=== PATIENT | male | born 1960 | race Caucasian/White ===

== ENCOUNTER 2017-08-08 17:48 | Inpatient (IN) | payer MEDICARE, MEDICAID ==
[~2017-08-08] VITALS: Ht 175.3 cm; Wt 74.7 kg
[~2017-08-08 17:48] MED LIST: ADV250 IH; ALBU8HFA IH; CEPH500C2 PO; CLON-570 PO; PARO20TA24 PO; QUET300T2 PO; SIMV-261 PO; SULF-168 PO
[2017-08-08] MEDS ORDERED: QUEtiapine FUMARATE 100 MG TABLET PO PRN (18:30)
[2017-08-08] MEDS ORDERED: ZOLPIDEM TARTRATE 10 MG TABLET PO PRN (18:30)
[2017-08-08 18:42] VITALS: BP 126/96
[2017-08-08] MEDS ORDERED: INFLUENZA VIRUS VACCINE QVS 2017-18 (3YR+)/PF 60 MCG/0.5 ML SYRINGE IM ONE (19:00)
[2017-08-08] MEDS ORDERED: PNEUMOCOCCAL VACCINE POLYVALENT 0.5 ML VIAL [PPSV23] IM ONE (19:00)
[2017-08-08] MEDS ORDERED: PERMETHRIN 5% 60 GM CREAM TP ONE (19:30)
[2017-08-08] MEDS: QUEtiapine FUMARATE 200 MG TABLET PO SCH (20:48)
[2017-08-08] MEDS ORDERED: DiphenhydrAMINE HCL 50 MG/ML VIAL ONE (21:58)
[2017-08-08] MEDS ORDERED: HALOPERIDOL LACTATE 5 MG/ML VIAL ONE (21:58)
[2017-08-08] MEDS ORDERED: LORazepam 2 MG/ML VIAL ONE (21:58)
[2017-08-08 22:00] VITALS: BP 130/90
[2017-08-08] MEDS ORDERED: HALOPERIDOL LACTATE 5 MG/ML VIAL IM ONE (22:00)
[2017-08-08] MEDS ORDERED: DiphenhydrAMINE HCL 50 MG/ML VIAL IM ONE (22:00)
[2017-08-08] MEDS ORDERED: LORazepam 2 MG/ML VIAL IM ONE (22:00)
[2017-08-09 06:08] VITALS: BP 140/86
[2017-08-09] MEDS: NICOTINE 21 MG/24 HOUR PATCH TD SCH (09:36)
[2017-08-09] MEDS: PARoxetine HCL 20 MG TABLET PO SCH (09:36)
[2017-08-09] MEDS ORDERED: TUBERCULIN, PURIFIED PROTEIN DERIVATIVE 5 TU/0.1 ML SYG ID ONE (11:15)
[2017-08-09] MEDS ORDERED: LOPERAMIDE HCL 2 MG CAPSULE PO PRN (11:15)
[2017-08-09] MEDS ORDERED: ACETAMINOPHEN 325 MG TABLET PO PRN (11:15)
[2017-08-09] MEDS ORDERED: GuaiFENesin/D-METHORPHAN [SUGAR-FREE] 200-20MG/10 ML SYRUP UDCUP PO PRN (11:15)
[2017-08-09] MEDS ORDERED: PROMETHAZINE HCL 25 MG TABLET PO PRN (11:15)
[2017-08-09] MEDS ORDERED: HydrOXYzine PAMOATE 50 MG CAPSULE PO PRN (11:15)
[2017-08-09] MEDS ORDERED: MAG HYDROX/AL HYDROX/SIMETH ES 30 ML SUSPENSION UDCUP PO PRN (11:15)
[2017-08-09] MEDS ORDERED: MAGNESIUM HYDROXIDE SUSPENSION 30 ML UDCUP PO PRN (11:15)
[2017-08-09 16:22] VITALS: BP 122/76
[2017-08-09] MEDS: THIAMINE HCL 100 MG TABLET PO SCH (17:54)
[2017-08-09] MEDS: QUEtiapine FUMARATE 200 MG TABLET PO SCH (20:54)
[2017-08-09] MEDS: GABAPENTIN 100 MG CAPSULE PO SCH (21:03)
[2017-08-10 00:21] VITALS: BP 128/67
[2017-08-10 04:31] VITALS: BP 147/93
[2017-08-10] MEDS: LORazepam 2 MG TABLET PO PRN (04:45)
[2017-08-10 08:16] LABS: BASOPHILS % (AUTO) 0.7 % (0.0-2.0); EOSINOPHILS % (AUTO) 3.4 % (1.0-6.0); HEMATOCRIT 43.8 % (41-53); HEMOGLOBIN 15.3 g/dL (13.5-17.5); LYMPHOCYTES # (AUTO) 1.7 K/uL (1.0-4.8); LYMPHOCYTES % (AUTO) 23.5 % (22.0-44.0); MEAN CORPUSCULAR HEMOGLOBIN 34.1 pg (26.0-34.0); MEAN CORPUSCULAR HGB CONC 34.9 G/dL (31.0-37.0); MEAN CORPUSCULAR VOLUME 98 fL (80-100); MONOCYTES # (AUTO) 0.7 K/uL (0.1-1.0); MONOCYTES % (AUTO) 9.1 % (2.0-9.0); NEUTROPHILS # (AUTO) 4.7 K/uL (1.8-7.7); NEUTROPHILS % (AUTO) 63.3 % (40.0-70.0); PLATELET COUNT (AUTO) 264 K/uL (150-450); RED BLOOD CELL COUNT(AUTO) 4.49 MIL/uL (4.50-5.90); RED CELL DISTRIBUTION WIDTH 12.9 % (11.5-14.5); WHITE BLOOD COUNT (AUTO) 7.4 K/uL (4.5-11.0)
[2017-08-10 08:25] VITALS: BP 155/86
[2017-08-10] MEDS: NICOTINE 21 MG/24 HOUR PATCH TD SCH (08:29)
[2017-08-10] MEDS: PARoxetine HCL 20 MG TABLET PO SCH (08:29)
[2017-08-10] MEDS: GABAPENTIN 100 MG CAPSULE PO SCH ×4 (08:29→20:30)
[2017-08-10] MEDS: FOLIC ACID 1 MG TABLET PO SCH (08:29)
[2017-08-10] MEDS: MULTIVITAMINS WITH MINERALS, THERAPEUTIC TABLET PO SCH (08:29)
[2017-08-10] MEDS: NALTREXONE HCL 50 MG TABLET PO SCH (08:29)
[2017-08-10] MEDS: THIAMINE HCL 100 MG TABLET PO SCH ×2 (08:29→16:37)
[2017-08-10 08:47] LABS: ALANINE AMINOTRANSFERASE 15 U/L (12-78); ALBUMIN 3.5 g/dL (3.4-5.0); ASPARTATE AMINOTRANSFERASE 17 U/L (15-37); BILIRUBIN,TOTAL 0.8 mg/dL (0.1-1.0); CALCIUM, TOTAL 8.7 mg/dL (8.8-10.5); CARBON DIOXIDE 29 mmol/L (22-29); CREATININE 0.74 mg/dL (0.60-1.30); GLOMERULAR FILTR. RATE CALC > 60 mL/min (>60); THYROID STIMULATING HORMONE 0.45 uIU/mL (0.36-3.74); TOTAL PROTEIN, SERUM 6.8 g/dL (6.4-8.2)
[2017-08-10 10:01] LABS: UREA NITROGEN, BLOOD 14 mg/dL (7-18)
[2017-08-10 11:01] LABS: HEMOGLOBIN A1C 4.9 % (4.5-6.2)
[2017-08-10 11:11] LABS: ANION GAP 7 mmol/L (8-16); CHLORIDE 107 mmol/L (98-107); POTASSIUM 3.3 mmol/L (3.5-5.1); SODIUM SERUM 143 mmol/L (136-145)
[2017-08-10] MEDS ORDERED: POTASSIUM CHLORIDE 20 MEQ ER TABLET PO ONE (14:00)
[2017-08-10 16:13] VITALS: BP 126/84
[2017-08-10] MEDS: QUEtiapine FUMARATE 200 MG TABLET PO SCH (20:30)
[2017-08-11 02:10] VITALS: BP 110/78
[2017-08-11] MEDS: FOLIC ACID 1 MG TABLET PO SCH (08:22)
[2017-08-11] MEDS: THIAMINE HCL 100 MG TABLET PO SCH ×2 (08:22→16:32)
[2017-08-11] MEDS: MULTIVITAMINS WITH MINERALS, THERAPEUTIC TABLET PO SCH (08:23)
[2017-08-11] MEDS: NALTREXONE HCL 50 MG TABLET PO SCH (08:23)
[2017-08-11] MEDS: PARoxetine HCL 20 MG TABLET PO SCH (08:23)
[2017-08-11] MEDS: NICOTINE 21 MG/24 HOUR PATCH TD SCH (08:23)
[2017-08-11] MEDS: GABAPENTIN 100 MG CAPSULE PO SCH ×4 (08:23→20:08)
[2017-08-11 08:48] VITALS: BP 122/62
[2017-08-11] MEDS ORDERED: POTASSIUM CHLORIDE 20 MEQ ER TABLET PO ONE (09:30)
[2017-08-11 16:16] VITALS: BP 116/71
[2017-08-11] MEDS: QUEtiapine FUMARATE 200 MG TABLET PO SCH ×2 (20:09→21:14)
[2017-08-12] MEDS: LORazepam 2 MG TABLET PO PRN (05:53)
[2017-08-12 06:04] VITALS: BP 136/85
[2017-08-12] MEDS: THIAMINE HCL 100 MG TABLET PO SCH ×2 (08:30→16:33)
[2017-08-12] MEDS: PARoxetine HCL 20 MG TABLET PO SCH (08:31)
[2017-08-12] MEDS: FOLIC ACID 1 MG TABLET PO SCH (08:31)
[2017-08-12] MEDS: MULTIVITAMINS WITH MINERALS, THERAPEUTIC TABLET PO SCH (08:31)
[2017-08-12] MEDS: GABAPENTIN 100 MG CAPSULE PO SCH ×4 (08:31→20:04)
[2017-08-12] MEDS: NALTREXONE HCL 50 MG TABLET PO SCH (08:31)
[2017-08-12] MEDS: NICOTINE 21 MG/24 HOUR PATCH TD SCH (08:31)
[2017-08-12 08:41] VITALS: BP 107/59
[2017-08-12] MEDS ORDERED: DiphenhydrAMINE HCL 50 MG/ML VIAL ONE (09:22)
[2017-08-12] MEDS ORDERED: LORazepam 2 MG/ML VIAL ONE (09:22)
[2017-08-12] MEDS ORDERED: HALOPERIDOL LACTATE 5 MG/ML VIAL ONE (09:22)
[2017-08-12] MEDS ORDERED: DiphenhydrAMINE HCL 50 MG/ML VIAL IM ONE (09:45)
[2017-08-12] MEDS ORDERED: HALOPERIDOL LACTATE 5 MG/ML VIAL IM ONE (09:45)
[2017-08-12] MEDS ORDERED: LORazepam 2 MG/ML VIAL IM ONE (09:45)
[2017-08-12 16:00] VITALS: BP 120/75
[2017-08-12] MEDS: QUEtiapine FUMARATE 200 MG TABLET PO SCH (20:04)
[2017-08-13 04:24] VITALS: BP 124/80
[2017-08-13] MEDS: GABAPENTIN 100 MG CAPSULE PO SCH ×4 (08:22→20:27)
[2017-08-13] MEDS: THIAMINE HCL 100 MG TABLET PO SCH ×2 (08:23→16:57)
[2017-08-13] MEDS: FOLIC ACID 1 MG TABLET PO SCH (08:23)
[2017-08-13] MEDS: NALTREXONE HCL 50 MG TABLET PO SCH (08:23)
[2017-08-13] MEDS: NICOTINE 21 MG/24 HOUR PATCH TD SCH (08:23)
[2017-08-13] MEDS: MULTIVITAMINS WITH MINERALS, THERAPEUTIC TABLET PO SCH (08:23)
[2017-08-13] MEDS: PARoxetine HCL 20 MG TABLET PO SCH (08:23)
[2017-08-13 08:36] VITALS: BP 139/81
[2017-08-13 16:36] VITALS: BP 130/85
[2017-08-13] MEDS: QUEtiapine FUMARATE 200 MG TABLET PO SCH (20:27)
[2017-08-14 04:49] VITALS: BP 139/77
[2017-08-14] MEDS: GABAPENTIN 100 MG CAPSULE PO SCH (08:06)
[2017-08-14] MEDS: PARoxetine HCL 20 MG TABLET PO SCH (08:06)
[2017-08-14] MEDS: FOLIC ACID 1 MG TABLET PO SCH (08:06)
[2017-08-14] MEDS: MULTIVITAMINS WITH MINERALS, THERAPEUTIC TABLET PO SCH (08:06)
[2017-08-14] MEDS: NALTREXONE HCL 50 MG TABLET PO SCH (08:06)
[2017-08-14] MEDS: THIAMINE HCL 100 MG TABLET PO SCH (08:06)
[2017-08-14] MEDS ORDERED: GABA-529 PO (08:08)
[2017-08-14] MEDS ORDERED: NALT50TA6 PO (08:08)
[2017-08-14] MEDS: NICOTINE 21 MG/24 HOUR PATCH TD SCH (08:08)
[2017-08-14 09:19] VITALS: BP 143/87
== END 2017-08-14 09:00 | disposition home or self-care (01) | DRG 885 ==
LOC: EDSTATUS 18:11 → B2S 18:25 → B2X 20:23
PROVIDERS: ADMIT Psychiatry & Neurology Psychiatry; ATTEND Psychiatry & Neurology Psychiatry
DX: F25.1 Schizoaffective disorder, depressive type (principal); R56.9 Unspecified convulsions; F17.200 Nicotine dependence, unspecified, uncomplicated; F80.81 Childhood onset fluency disorder; G80.9 Cerebral palsy, unspecified; F12.90 Cannabis use, unspecified, uncomplicated; J44.9 Chronic obstructive pulmonary disease, unspecified; K21.9 Gastro-esophageal reflux disease without esophagitis; Z65.3 Problems related to other legal circumstances; Z79.899 Other long term (current) drug therapy; Z91.19 Patient's noncompliance with other medical treatment and regimen; Z99.3 Dependence on wheelchair; Z72.89 Other problems related to lifestyle; Z91.011 Allergy to milk products; Z82.0 Family history of epilepsy and other diseases of the nervous system
CPT/HCPCS: 83036; 84132; 84439; 84443; J1200; J1630; J2060

== ENCOUNTER 2017-11-09 10:55 | Inpatient (IN) | payer MEDICARE, MEDICAID ==
[~2017-11-09] VITALS: Ht 175.3 cm; Wt 75.4 kg
[~2017-11-09 10:55] MED LIST changes: -ADV250 IH; -ALBU8HFA IH; -CEPH500C2 PO; -CLON-570 PO; +GABA-529 PO; +NALT50TA6 PO; -SIMV-261 PO; -SULF-168 PO
[2017-11-09] MEDS ORDERED: QUEtiapine FUMARATE 100 MG TABLET PO PRN (11:30)
[2017-11-09] MEDS ORDERED: ZOLPIDEM TARTRATE 10 MG TABLET PO PRN (11:30)
[2017-11-09] MEDS ORDERED: LORazepam 2 MG TABLET PO PRN (11:30)
[2017-11-09 13:00] VITALS: BP 147/84
[2017-11-09] MEDS: GABAPENTIN 100 MG CAPSULE PO SCH ×3 (13:00→20:19)
[2017-11-09] MEDS ORDERED: MAG HYDROX/AL HYDROX/SIMETH ES 30 ML SUSPENSION UDCUP PO PRN (14:15)
[2017-11-09] MEDS ORDERED: PNEUMOCOCCAL VACCINE POLYVALENT 0.5 ML VIAL [PPSV23] IM ONE (14:15)
[2017-11-09] MEDS ORDERED: PROMETHAZINE HCL 25 MG TABLET PO PRN (14:15)
[2017-11-09] MEDS ORDERED: HydrOXYzine PAMOATE 50 MG CAPSULE PO PRN (14:15)
[2017-11-09] MEDS ORDERED: LOPERAMIDE HCL 2 MG CAPSULE PO PRN (14:15)
[2017-11-09] MEDS ORDERED: ACETAMINOPHEN 325 MG TABLET PO PRN (14:15)
[2017-11-09] MEDS ORDERED: MAGNESIUM HYDROXIDE SUSPENSION 30 ML UDCUP PO PRN (14:15)
[2017-11-09] MEDS ORDERED: GuaiFENesin/D-METHORPHAN [SUGAR-FREE] 200-20MG/10 ML SYRUP UDCUP PO PRN (14:15)
[2017-11-09 16:08] VITALS: BP 118/64
[2017-11-09] MEDS: THIAMINE HCL 100 MG TABLET PO SCH (16:29)
[2017-11-09] MEDS: CloNIDine HCL 0.1 MG TABLET PO SCH (16:29)
[2017-11-09] MEDS: GEMFIBROZIL 600 MG TABLET PO SCH (16:30)
[2017-11-09] MEDS: NICOTINE 21 MG/24 HOUR PATCH TD SCH (17:00)
[2017-11-09] MEDS: QUEtiapine FUMARATE 200 MG TABLET PO SCH (20:19)
[2017-11-10 03:45] VITALS: BP 124/65
[2017-11-10] MEDS ORDERED: INFLUENZA VIRUS VACCINE QVS 2017-18 (3YR+)/PF 60 MCG/0.5 ML SYRINGE IM ONE (05:00)
[2017-11-10] MEDS: GEMFIBROZIL 600 MG TABLET PO SCH ×2 (07:02→16:10)
[2017-11-10] MEDS: ASPIRIN 81 MG CHEWABLE TABLET PO SCH (07:03)
[2017-11-10 08:25] LABS: HEMOGLOBIN A1C 5.2 % (4.5-6.2)
[2017-11-10 08:29] LABS: BASOPHILS % (AUTO) 0.4 % (0.0-2.0); HEMATOCRIT 43.2 % (41-53); HEMOGLOBIN 14.9 g/dL (13.5-17.5); LYMPHOCYTES # (AUTO) 1.9 K/uL (1.0-4.8); LYMPHOCYTES % (AUTO) 25.1 % (22.0-44.0); MEAN CORPUSCULAR HEMOGLOBIN 33.4 pg (26.0-34.0); MEAN CORPUSCULAR HGB CONC 34.5 G/dL (31.0-37.0); MEAN CORPUSCULAR VOLUME 97 fL (80-100); MONOCYTES # (AUTO) 0.6 K/uL (0.1-1.0); MONOCYTES % (AUTO) 8.4 % (2.0-9.0); NEUTROPHILS # (AUTO) 4.6 K/uL (1.8-7.7); NEUTROPHILS % (AUTO) 62.1 % (40.0-70.0); PLATELET COUNT (AUTO) 221 K/uL (150-450); RED BLOOD CELL COUNT(AUTO) 4.47 MIL/uL (4.50-5.90); RED CELL DISTRIBUTION WIDTH 13.3 % (11.5-14.5)
[2017-11-10] MEDS ORDERED: NICOTINE 21 MG/24 HOUR PATCH TD SCH (09:00)
[2017-11-10] MEDS: FOLIC ACID 1 MG TABLET PO SCH (09:03)
[2017-11-10] MEDS: NICOTINE 21 MG/24 HOUR PATCH TD SCH (09:03)
[2017-11-10] MEDS: NALTREXONE HCL 50 MG TABLET PO SCH (09:03)
[2017-11-10] MEDS: GABAPENTIN 100 MG CAPSULE PO SCH ×4 (09:04→20:18)
[2017-11-10] MEDS: MULTIVITAMINS WITH MINERALS, THERAPEUTIC TABLET PO SCH (09:04)
[2017-11-10] MEDS: CloNIDine HCL 0.1 MG TABLET PO SCH ×2 (09:04→16:10)
[2017-11-10] MEDS: PARoxetine HCL 20 MG TABLET PO SCH (09:04)
[2017-11-10] MEDS: THIAMINE HCL 100 MG TABLET PO SCH ×2 (09:05→16:10)
[2017-11-10 09:45] LABS: ALANINE AMINOTRANSFERASE 16 U/L (12-78); ALBUMIN 3.7 g/dL (3.4-5.0); ALKALINE PHOSPHATASE 73 U/L (46-116); ANION GAP 8 mmol/L (8-16); ASPARTATE AMINOTRANSFERASE 14 U/L (15-37); BILIRUBIN,TOTAL 0.8 mg/dL (0.1-1.0); CALCIUM, TOTAL 8.8 mg/dL (8.8-10.5); CARBON DIOXIDE 27 mmol/L (22-29); CHLORIDE 106 mmol/L (98-107); CHOLESTEROL 172 mg/dL (131-200); CREATININE 0.86 mg/dL (0.60-1.30); FREE T4 (FREE THYROXINE) 1.02 ng/dL (0.76-1.46); GLOMERULAR FILTR. RATE CALC > 60 mL/min (>60); GLUCOSE,RANDOM 77 mg/dL (70-110); HDL CHOLESTEROL 43 mg/dL (40-60); LDL CHOL (CALC.) 111 mg/dL (0-130); POTASSIUM 3.5 mmol/L (3.5-5.1); SODIUM SERUM 141 mmol/L (136-145); THYROID STIMULATING HORMONE 0.51 uIU/mL (0.36-3.74); TOTAL PROTEIN, SERUM 7.2 g/dL (6.4-8.2); TRIGLYCERIDES 88 mg/dL (15-150); UREA NITROGEN, BLOOD 11 mg/dL (7-18)
[2017-11-10 10:27] VITALS: BP 124/67
[2017-11-10 16:00] VITALS: BP 126/79
[2017-11-10] MEDS: QUEtiapine FUMARATE 200 MG TABLET PO SCH (20:16)
[2017-11-11 00:43] VITALS: BP 102/61
[2017-11-11 06:20] VITALS: BP 109/65
[2017-11-11] MEDS: ASPIRIN 81 MG CHEWABLE TABLET PO SCH (06:21)
[2017-11-11] MEDS: GEMFIBROZIL 600 MG TABLET PO SCH ×2 (06:22→16:10)
[2017-11-11 09:22] VITALS: BP 106/69
[2017-11-11] MEDS: CloNIDine HCL 0.1 MG TABLET PO SCH ×2 (09:44→16:10)
[2017-11-11] MEDS: MULTIVITAMINS WITH MINERALS, THERAPEUTIC TABLET PO SCH (09:44)
[2017-11-11] MEDS: PARoxetine HCL 20 MG TABLET PO SCH (09:44)
[2017-11-11] MEDS: GABAPENTIN 100 MG CAPSULE PO SCH ×4 (09:45→20:12)
[2017-11-11] MEDS: FOLIC ACID 1 MG TABLET PO SCH (09:45)
[2017-11-11] MEDS: NALTREXONE HCL 50 MG TABLET PO SCH (09:45)
[2017-11-11] MEDS: THIAMINE HCL 100 MG TABLET PO SCH ×2 (09:46→16:10)
[2017-11-11] MEDS: NICOTINE 21 MG/24 HOUR PATCH TD SCH (09:46)
[2017-11-11 16:00] VITALS: BP 124/88
[2017-11-11] MEDS: QUEtiapine FUMARATE 200 MG TABLET PO SCH (20:12)
[2017-11-12] VITALS: BP 105/64
[2017-11-12] MEDS: ASPIRIN 81 MG CHEWABLE TABLET PO SCH (06:40)
[2017-11-12] MEDS: GEMFIBROZIL 600 MG TABLET PO SCH ×2 (06:40→16:06)
[2017-11-12 08:42] VITALS: BP 105/60
[2017-11-12] MEDS: MULTIVITAMINS WITH MINERALS, THERAPEUTIC TABLET PO SCH (09:29)
[2017-11-12] MEDS: THIAMINE HCL 100 MG TABLET PO SCH ×2 (09:29→16:06)
[2017-11-12] MEDS: PARoxetine HCL 20 MG TABLET PO SCH (09:29)
[2017-11-12] MEDS: FOLIC ACID 1 MG TABLET PO SCH (09:29)
[2017-11-12] MEDS: GABAPENTIN 100 MG CAPSULE PO SCH ×4 (09:29→20:10)
[2017-11-12] MEDS: NALTREXONE HCL 50 MG TABLET PO SCH (09:29)
[2017-11-12] MEDS: CloNIDine HCL 0.1 MG TABLET PO SCH ×2 (09:29→16:06)
[2017-11-12] MEDS: NICOTINE 21 MG/24 HOUR PATCH TD SCH (09:30)
[2017-11-12 16:00] VITALS: BP 114/75
[2017-11-12] MEDS: QUEtiapine FUMARATE 200 MG TABLET PO SCH (20:10)
[2017-11-13 00:05] VITALS: BP 105/58
[2017-11-13] MEDS: GEMFIBROZIL 600 MG TABLET PO SCH (06:37)
[2017-11-13] MEDS: ASPIRIN 81 MG CHEWABLE TABLET PO SCH (06:37)
[2017-11-13 08:35] VITALS: BP 120/74
[2017-11-13] MEDS: CloNIDine HCL 0.1 MG TABLET PO SCH (08:49)
[2017-11-13] MEDS: PARoxetine HCL 20 MG TABLET PO SCH (08:49)
[2017-11-13] MEDS: MULTIVITAMINS WITH MINERALS, THERAPEUTIC TABLET PO SCH (08:49)
[2017-11-13] MEDS: THIAMINE HCL 100 MG TABLET PO SCH (08:49)
[2017-11-13] MEDS: FOLIC ACID 1 MG TABLET PO SCH (08:49)
[2017-11-13] MEDS: GABAPENTIN 100 MG CAPSULE PO SCH ×2 (08:49→12:59)
[2017-11-13] MEDS: NICOTINE 21 MG/24 HOUR PATCH TD SCH (08:49)
[2017-11-13] MEDS: NALTREXONE HCL 50 MG TABLET PO SCH (08:50)
[2017-11-13] MEDS ORDERED: NALT50TA PO (13:32)
[2017-11-13] MEDS ORDERED: PARO-37 PO (13:32)
[2017-11-13] MEDS ORDERED: QUET200T29 PO (13:32)
[2017-11-13] MEDS ORDERED: GABA-529 PO (13:32)
[2017-11-13] MEDS ORDERED: GEMF600T3 PO (14:43)
[2017-11-13] MEDS ORDERED: ASPI81 PO (14:44)
[2017-11-13] MEDS ORDERED: CLON.2 PO (14:44)
== END 2017-11-13 17:09 | disposition home or self-care (01) | DRG 885 ==
LOC: B2S 12:06
PROVIDERS: ADMIT Psychiatry & Neurology Psychiatry; ATTEND Psychiatry & Neurology Psychiatry
DX: F25.0 Schizoaffective disorder, bipolar type (principal); E46 Unspecified protein-calorie malnutrition; Z91.19 Patient's noncompliance with other medical treatment and regimen; F17.200 Nicotine dependence, unspecified, uncomplicated; Z28.21 Immunization not carried out because of patient refusal; G80.9 Cerebral palsy, unspecified; J44.9 Chronic obstructive pulmonary disease, unspecified; K21.9 Gastro-esophageal reflux disease without esophagitis; Z68.32 Body mass index [BMI] 32.0-32.9, adult; R26.81 Unsteadiness on feet
CPT/HCPCS: 83036; 84439; 84443; 86592; 90471

== ENCOUNTER 2018-02-10 14:23 | Inpatient (IN) | payer MEDICARE, MEDICAID ==
[~2018-02-10] VITALS: Ht 175.3 cm; Wt 76.5 kg
[~2018-02-10 14:23] MED LIST changes: +ASPI81TA39 PO; +CLON-570 PO; -GABA-529 PO; +GEMF600T PO; +GEMFIBROZIL 600 MG TABLET PO SCH; -NALT50TA6 PO; -QUET300T2 PO; +QUET400T PO
[2018-02-10 14:37] VITALS: BP 92/57
[2018-02-10] MEDS ORDERED: ZOLPIDEM TARTRATE 10 MG TABLET PO PRN (14:45)
[2018-02-10] MEDS ORDERED: LORazepam 2 MG TABLET PO PRN (14:45)
[2018-02-10] MEDS ORDERED: HALOPERIDOL 5 MG TABLET PO PRN (14:45)
[2018-02-10] MEDS ORDERED: PNEUMOCOCCAL VACCINE POLYVALENT 0.5 ML VIAL [PPSV23] IM ONE (15:30)
[2018-02-10 16:00] VITALS: BP 122/86
[2018-02-10] MEDS ORDERED: INFLUENZA VIRUS VACCINE QVS 2017-18 (3YR+)/PF 60 MCG/0.5 ML SYRINGE IM ONE (16:30)
[2018-02-10 17:34] VITALS: BP 115/62
[2018-02-10] MEDS: NICOTINE 21 MG/24 HOUR PATCH TD SCH (18:38)
[2018-02-10] MEDS: CloNIDine HCL 0.1 MG TABLET PO SCH (18:38)
[2018-02-11 00:03] VITALS: BP 117/74
[2018-02-11] MEDS: GEMFIBROZIL 600 MG TABLET PO SCH ×2 (06:36→16:59)
[2018-02-11] MEDS: ASPIRIN 81 MG CHEWABLE TABLET PO SCH (06:46)
[2018-02-11 08:29] VITALS: BP 119/70
[2018-02-11 08:34] LABS: EOSINOPHILS % (AUTO) 3.2 % (1.0-6.0); HEMATOCRIT 41.7 % (41-53); HEMOGLOBIN 14.6 g/dL (13.5-17.5); LYMPHOCYTES # (AUTO) 1.6 K/uL (1.0-4.8); LYMPHOCYTES % (AUTO) 27.2 % (22.0-44.0); MEAN CORPUSCULAR HEMOGLOBIN 33.2 pg (26.0-34.0); MEAN CORPUSCULAR HGB CONC 34.9 G/dL (31.0-37.0); MEAN CORPUSCULAR VOLUME 95 fL (80-100); MONOCYTES # (AUTO) 0.5 K/uL (0.1-1.0); MONOCYTES % (AUTO) 7.8 % (2.0-9.0); NEUTROPHILS # (AUTO) 3.6 K/uL (1.8-7.7); NEUTROPHILS % (AUTO) 60.8 % (40.0-70.0); PLATELET COUNT (AUTO) 206 K/uL (150-450); RED BLOOD CELL COUNT(AUTO) 4.38 MIL/uL (4.50-5.90)
[2018-02-11] MEDS: CloNIDine HCL 0.1 MG TABLET PO SCH ×2 (08:48→16:59)
[2018-02-11] MEDS: PARoxetine HCL 20 MG TABLET PO SCH (08:48)
[2018-02-11] MEDS: NICOTINE 21 MG/24 HOUR PATCH TD SCH (08:49)
[2018-02-11 08:53] LABS: HEMOGLOBIN A1C 4.9 % (4.5-6.2)
[2018-02-11 09:00] LABS: ALANINE AMINOTRANSFERASE 16 U/L (12-78); ALBUMIN 3.3 g/dL (3.4-5.0); ALKALINE PHOSPHATASE 60 U/L (46-116); ANION GAP 6 mmol/L (8-16); ASPARTATE AMINOTRANSFERASE 13 U/L (15-37); BILIRUBIN,TOTAL 1.1 mg/dL (0.1-1.0); CALCIUM, TOTAL 8.9 mg/dL (8.8-10.5); CARBON DIOXIDE 31 mmol/L (22-29); CHLORIDE 108 mmol/L (98-107); CHOL/HDL RATIO 4.3 (4.2-7.3); CHOLESTEROL 176 mg/dL (131-200); CREATININE 0.82 mg/dL (0.60-1.30); FREE T4 (FREE THYROXINE) 1.03 ng/dL (0.76-1.46); GLOMERULAR FILTR. RATE CALC > 60 mL/min (>60); GLUCOSE,RANDOM 82 mg/dL (70-110); HDL CHOLESTEROL 41 mg/dL (40-60); LDL CHOL (CALC.) 123 mg/dL (0-130); SODIUM SERUM 145 mmol/L (136-145); THYROID STIMULATING HORMONE 0.75 uIU/mL (0.36-3.74); TOTAL PROTEIN, SERUM 6.5 g/dL (6.4-8.2); TRIGLYCERIDES 58 mg/dL (15-150); UREA NITROGEN, BLOOD 9 mg/dL (7-18)
[2018-02-11 16:13] VITALS: BP 126/82
[2018-02-11] MEDS: QUEtiapine FUMARATE 200 MG TABLET PO SCH (20:31)
[2018-02-12 00:02] VITALS: BP 120/76
[2018-02-12] MEDS: GEMFIBROZIL 600 MG TABLET PO SCH ×2 (06:30→16:13)
[2018-02-12] MEDS: ASPIRIN 81 MG CHEWABLE TABLET PO SCH (06:31)
[2018-02-12 08:24] VITALS: BP 114/70
[2018-02-12] MEDS: PARoxetine HCL 20 MG TABLET PO SCH (10:07)
[2018-02-12] MEDS: CloNIDine HCL 0.1 MG TABLET PO SCH ×2 (10:08→16:13)
[2018-02-12] MEDS: NICOTINE 21 MG/24 HOUR PATCH TD SCH (10:08)
[2018-02-12 16:02] VITALS: BP 110/72
[2018-02-12] MEDS: QUEtiapine FUMARATE 200 MG TABLET PO SCH (20:14)
[2018-02-13 00:21] VITALS: BP 116/68
[2018-02-13] MEDS: ASPIRIN 81 MG CHEWABLE TABLET PO SCH (06:31)
[2018-02-13] MEDS: GEMFIBROZIL 600 MG TABLET PO SCH ×2 (06:31→16:15)
[2018-02-13 08:26] VITALS: BP 129/79
[2018-02-13] MEDS: CloNIDine HCL 0.1 MG TABLET PO SCH ×2 (08:57→16:15)
[2018-02-13] MEDS: NICOTINE 21 MG/24 HOUR PATCH TD SCH (08:58)
[2018-02-13] MEDS: PARoxetine HCL 20 MG TABLET PO SCH (08:58)
[2018-02-13 16:14] VITALS: BP 123/69
[2018-02-13] MEDS: QUEtiapine FUMARATE 200 MG TABLET PO SCH (20:20)
[2018-02-14] MEDS: GEMFIBROZIL 600 MG TABLET PO SCH ×2 (06:23→16:12)
[2018-02-14] MEDS: ASPIRIN 81 MG CHEWABLE TABLET PO SCH (06:23)
[2018-02-14 06:32] VITALS: BP_SYST 132; BP_SYST 142; BP_DIAS 70
[2018-02-14 08:00] VITALS: BP 117/71
[2018-02-14] MEDS: PARoxetine HCL 20 MG TABLET PO SCH (08:36)
[2018-02-14] MEDS: NICOTINE 21 MG/24 HOUR PATCH TD SCH (08:37)
[2018-02-14] MEDS: CloNIDine HCL 0.1 MG TABLET PO SCH ×2 (08:37→16:12)
[2018-02-14 16:08] VITALS: BP 130/75
[2018-02-14] MEDS: QUEtiapine FUMARATE 200 MG TABLET PO SCH (20:30)
[2018-02-15] VITALS: BP 123/70
[2018-02-15] MEDS: GEMFIBROZIL 600 MG TABLET PO SCH ×2 (06:17→16:11)
[2018-02-15] MEDS: ASPIRIN 81 MG CHEWABLE TABLET PO SCH (06:42)
[2018-02-15 08:13] VITALS: BP 118/66
[2018-02-15] MEDS: NICOTINE 21 MG/24 HOUR PATCH TD SCH (08:16)
[2018-02-15] MEDS: PARoxetine HCL 20 MG TABLET PO SCH (08:16)
[2018-02-15] MEDS: CloNIDine HCL 0.1 MG TABLET PO SCH ×2 (08:16→16:11)
[2018-02-15 16:14] VITALS: BP 117/61
[2018-02-15] MEDS: QUEtiapine FUMARATE 200 MG TABLET PO SCH (20:09)
[2018-02-16 01:08] VITALS: BP 100/63
[2018-02-16] MEDS: GEMFIBROZIL 600 MG TABLET PO SCH ×2 (06:10→16:18)
[2018-02-16] MEDS: ASPIRIN 81 MG CHEWABLE TABLET PO SCH (06:10)
[2018-02-16 08:10] VITALS: BP 108/64
[2018-02-16 08:50] VITALS: BP 112/64
[2018-02-16] MEDS: CloNIDine HCL 0.1 MG TABLET PO SCH ×2 (08:53→16:18)
[2018-02-16] MEDS: PARoxetine HCL 20 MG TABLET PO SCH (08:53)
[2018-02-16] MEDS: NICOTINE 21 MG/24 HOUR PATCH TD SCH (08:53)
[2018-02-16 16:09] VITALS: BP 109/61
[2018-02-16] MEDS: QUEtiapine FUMARATE 200 MG TABLET PO SCH (20:11)
[2018-02-17 00:54] VITALS: BP 105/69
[2018-02-17] MEDS: GEMFIBROZIL 600 MG TABLET PO SCH ×2 (06:39→16:34)
[2018-02-17] MEDS: ASPIRIN 81 MG CHEWABLE TABLET PO SCH (06:39)
[2018-02-17 08:28] VITALS: BP 113/63
[2018-02-17] MEDS: CloNIDine HCL 0.1 MG TABLET PO SCH ×2 (08:53→16:34)
[2018-02-17] MEDS: NICOTINE 21 MG/24 HOUR PATCH TD SCH (08:53)
[2018-02-17] MEDS: PARoxetine HCL 20 MG TABLET PO SCH (08:53)
[2018-02-17 16:08] VITALS: BP 133/67
[2018-02-17] MEDS: QUEtiapine FUMARATE 200 MG TABLET PO SCH (20:01)
[2018-02-18 00:10] VITALS: BP 105/63
[2018-02-18] MEDS: GEMFIBROZIL 600 MG TABLET PO SCH ×2 (06:50→16:15)
[2018-02-18] MEDS: ASPIRIN 81 MG CHEWABLE TABLET PO SCH (06:51)
[2018-02-18] MEDS: PARoxetine HCL 20 MG TABLET PO SCH (08:28)
[2018-02-18] MEDS: CloNIDine HCL 0.1 MG TABLET PO SCH ×2 (08:28→16:15)
[2018-02-18] MEDS: NICOTINE 21 MG/24 HOUR PATCH TD SCH (08:28)
[2018-02-18 08:54] VITALS: BP 129/72
[2018-02-18 16:37] VITALS: BP 132/76
[2018-02-18] MEDS: QUEtiapine FUMARATE 200 MG TABLET PO SCH (20:02)
[2018-02-19 00:36] VITALS: BP 106/64
[2018-02-19] MEDS: ASPIRIN 81 MG CHEWABLE TABLET PO SCH (06:26)
[2018-02-19] MEDS: GEMFIBROZIL 600 MG TABLET PO SCH ×2 (06:27→16:22)
[2018-02-19] MEDS: CloNIDine HCL 0.1 MG TABLET PO SCH ×2 (08:18→16:22)
[2018-02-19] MEDS: PARoxetine HCL 20 MG TABLET PO SCH (08:18)
[2018-02-19] MEDS: NICOTINE 21 MG/24 HOUR PATCH TD SCH (08:19)
[2018-02-19 08:33] VITALS: BP 124/74
[2018-02-19 16:54] VITALS: BP 106/67
[2018-02-19] MEDS ORDERED: QUET200T29 PO (16:58)
[2018-02-19] MEDS ORDERED: PARO-37 PO (16:58)
[2018-02-19] MEDS: QUEtiapine FUMARATE 200 MG TABLET PO SCH (20:11)
[2018-02-20] MEDS: GEMFIBROZIL 600 MG TABLET PO SCH (06:53)
[2018-02-20] MEDS: ASPIRIN 81 MG CHEWABLE TABLET PO SCH (07:08)
[2018-02-20] MEDS: NICOTINE 21 MG/24 HOUR PATCH TD SCH (08:08)
[2018-02-20] MEDS: PARoxetine HCL 20 MG TABLET PO SCH (08:08)
[2018-02-20] MEDS: CloNIDine HCL 0.1 MG TABLET PO SCH (08:08)
[2018-02-20] MEDS ORDERED: CLON.2 PO (08:10)
[2018-02-20] MEDS ORDERED: GEMF600T3 PO (08:10)
[2018-02-20] MEDS ORDERED: ASPI81 PO (08:11)
[2018-02-20 08:34] VITALS: BP 121/78
== END 2018-02-20 09:27 | disposition home or self-care (01) | DRG 885 ==
LOC: B2X 14:52
DX: F25.1 Schizoaffective disorder, depressive type (principal); Z59.0 Homelessness; E78.5 Hyperlipidemia, unspecified; F12.90 Cannabis use, unspecified, uncomplicated; G80.9 Cerebral palsy, unspecified; I10 Essential (primary) hypertension; J44.9 Chronic obstructive pulmonary disease, unspecified; K21.9 Gastro-esophageal reflux disease without esophagitis; Z28.21 Immunization not carried out because of patient refusal; Z79.899 Other long term (current) drug therapy
CPT/HCPCS: 83036; 84439; 84443; 87081

== ENCOUNTER 2018-05-28 19:02 | Emergency (ER) | payer MEDICARE, OTHER ==
[~2018-05-28] VITALS: Ht 177.8 cm; Wt 81.8 kg
[~2018-05-28 19:02] MED LIST changes: -CLON-570 PO; +CLON.2 PO; -GEMFIBROZIL 600 MG TABLET PO SCH; +PARO-37 PO; -PARO20TA24 PO; +QUET200T29 PO; -QUET400T PO
[2018-05-28] MEDS ORDERED: BUSP5TAB20 PO (19:20)
[2018-05-28 19:57] LABS: APPEARANCE,URINE TURBID (CLEAR); GLUCOSE, URINE (UA) 250 mg/dL (NEGATIVE); KETONES,URINE 15 mg/dL (NEGATIVE); LEUKOCYTE ESTERASE ,URINE MODERATE (NEGATIVE); NITRATE,URINE POSITIVE (NEGATIVE); OCCULT BLOOD,URINE LARGE (NEGATIVE); PROTEIN,URINE SEE CONFIRM (NEGATIVE)
[2018-05-28 20:03] LABS: BILIRUBIN,URINE PRELIM. POSITIVE (NEGATIVE)
[2018-05-28 20:15] LABS: EOSINOPHILS % (AUTO) 1.6 % (1.0-6.0)
[2018-05-28 20:18] LABS: RBC,URINE >100 /HPF (0-2); SULFOSALICYLIC ACID,URINE 4+ (Negative)
[2018-05-28 20:20] LABS: BACTERIA,URINE Few /HPF (None Seen); SQUAMOUS EPITHELIAL CELL,UR Rare /LPF (None Seen)
[2018-05-28 20:22] LABS: HEMATOCRIT 39.9 % (41-53); HEMOGLOBIN 14.3 g/dL (13.5-17.5); MEAN CORPUSCULAR HEMOGLOBIN 33.2 pg (26.0-34.0); MEAN CORPUSCULAR HGB CONC 35.8 G/dL (31.0-37.0); MEAN CORPUSCULAR VOLUME 93 fL (80-100); RED BLOOD CELL COUNT(AUTO) 4.31 MIL/uL (4.50-5.90)
[2018-05-28 20:23] LABS: BASOPHILS % (AUTO) 0.7 % (0.0-2.0); LYMPHOCYTES % (AUTO) 15.4 % (22.0-44.0); MONOCYTES # (AUTO) 0.9 K/uL (0.1-1.0); MONOCYTES % (AUTO) 7.3 % (2.0-9.0); NEUTROPHILS # (AUTO) 9.7 K/uL (1.8-7.7); PLATELET COUNT (AUTO) 239 K/uL (150-450)
[2018-05-28 20:53] LABS: ANION GAP 9 mmol/L (8-16); CALCIUM, TOTAL 8.8 mg/dL (8.8-10.5); CARBON DIOXIDE 27 mmol/L (22-29); CHLORIDE 107 mmol/L (98-107); CREATININE 0.77 mg/dL (0.60-1.30); GLOMERULAR FILTR. RATE CALC > 60 mL/min (>60); GLUCOSE,RANDOM 95 mg/dL (70-110); POTASSIUM 3.4 mmol/L (3.5-5.1); SODIUM SERUM 143 mmol/L (136-145); UREA NITROGEN, BLOOD 12 mg/dL (7-18)
[2018-05-28 20:58] LABS: ALANINE AMINOTRANSFERASE 14 U/L (12-78); ALBUMIN 3.2 g/dL (3.4-5.0); ALKALINE PHOSPHATASE 58 U/L (46-116); ASPARTATE AMINOTRANSFERASE 13 U/L (15-37); BILIRUBIN,TOTAL 0.4 mg/dL (0.1-1.0); TOTAL PROTEIN, SERUM 6.4 g/dL (6.4-8.2)
[2018-05-28] MEDS ORDERED: CIPROFLOXACIN HCL 250 MG TABLET PO ONE (21:30)
[2018-05-28] MEDS ORDERED: ACETAMINOPHEN 500 MG TABLET PO ONE (21:30)
[2018-05-28 21:47] VITALS: BP 148/86
== END 2018-05-28 21:57 | disposition home or self-care (01) ==
LOC: EMS 19:03
DX: N39.0 Urinary tract infection, site not specified (principal); I71.9 Aortic aneurysm of unspecified site, without rupture; I10 Essential (primary) hypertension; E78.00 Pure hypercholesterolemia, unspecified; F32.9 Major depressive disorder, single episode, unspecified; F20.9 Schizophrenia, unspecified; F17.210 Nicotine dependence, cigarettes, uncomplicated; Z59.0 Homelessness; Z88.8 Allergy status to other drugs, medicaments and biological substances; Z91.011 Allergy to milk products; Z79.82 Long term (current) use of aspirin
CPT/HCPCS: 74176; 87086; 99285; 99406

== ENCOUNTER 2018-07-10 09:25 | Inpatient (IN) | payer MEDICARE, MEDICAID ==
[~2018-07-10] VITALS: Ht 175.3 cm; Wt 73.1 kg
[~2018-07-10 09:25] MED LIST changes: +BUSP5TAB20 PO
[2018-07-10] MEDS ORDERED: NICOTINE 7 MG/24 HOUR PATCH TD ONE (10:30)
[2018-07-10 10:39] LABS: BASOPHILS % (AUTO) 0.7 % (0.0-2.0); EOSINOPHILS % (AUTO) 1.3 % (1.0-6.0); HEMATOCRIT 44.3 % (41-53); HEMOGLOBIN 15.8 g/dL (13.5-17.5); LYMPHOCYTES # (AUTO) 1.6 K/uL (1.0-4.8); LYMPHOCYTES % (AUTO) 27.7 % (22.0-44.0); MEAN CORPUSCULAR HEMOGLOBIN 33.1 pg (26.0-34.0); MEAN CORPUSCULAR HGB CONC 35.6 G/dL (31.0-37.0); MEAN CORPUSCULAR VOLUME 93 fL (80-100); MONOCYTES # (AUTO) 0.4 K/uL (0.1-1.0); MONOCYTES % (AUTO) 7.4 % (2.0-9.0); NEUTROPHILS # (AUTO) 3.5 K/uL (1.8-7.7); NEUTROPHILS % (AUTO) 62.9 % (40.0-70.0); PLATELET COUNT (AUTO) 220 K/uL (150-450); RED BLOOD CELL COUNT(AUTO) 4.76 MIL/uL (4.50-5.90); RED CELL DISTRIBUTION WIDTH 12.9 % (11.5-14.5)
[2018-07-10 10:49] LABS: ANION GAP 9 mmol/L (8-16); CALCIUM, TOTAL 8.9 mg/dL (8.8-10.5); CARBON DIOXIDE 28 mmol/L (22-29); CHLORIDE 106 mmol/L (98-107); CREATININE 0.74 mg/dL (0.60-1.30); GLOMERULAR FILTR. RATE CALC > 60 mL/min (>60); GLUCOSE,RANDOM 89 mg/dL (70-110); POTASSIUM 3.5 mmol/L (3.5-5.1); SODIUM SERUM 143 mmol/L (136-145); UREA NITROGEN, BLOOD 10 mg/dL (7-18)
[2018-07-10 10:53] LABS: ALANINE AMINOTRANSFERASE 12 U/L (12-78); ALBUMIN 3.5 g/dL (3.4-5.0); ALKALINE PHOSPHATASE 67 U/L (46-116); ASPARTATE AMINOTRANSFERASE 15 U/L (15-37)
[2018-07-10 11:04] LABS: AMPHET/METH SCREEN,URINE NEGATIVE (NEGATIVE); BARBITURATE SCREEN, URINE NEGATIVE (NEGATIVE); BENZODIAZEPINES SCREEN,URINE NEGATIVE (NEGATIVE); CANNABINOID SCREEN,URINE POSITIVE (NEGATIVE); COCAINE SCREEN,URINE NEGATIVE (NEGATIVE); METHADONE SCREEN, URINE NEGATIVE (NEGATIVE); OPIATE SCREEN,URINE NEGATIVE (NEGATIVE); PHENCYCLIDINE SCREEN,URINE NEGATIVE (NEGATIVE)
[2018-07-10] MEDS ORDERED: LORazepam 2 MG TABLET PO PRN (11:30)
[2018-07-10] MEDS ORDERED: ZOLPIDEM TARTRATE 10 MG TABLET PO PRN (11:30)
[2018-07-10] MEDS ORDERED: HALOPERIDOL 5 MG TABLET PO PRN (11:30)
[2018-07-10 18:09] VITALS: BP_SYST 138; BP_SYST 156; BP_DIAS 73; BP_DIAS 90
[2018-07-10] MEDS ORDERED: ALBUTEROL SULFATE HFA 90 MCG/PUFF 8 GM INHALER IH PRN (21:45)
[2018-07-10] MEDS ORDERED: CloNIDine HCL 0.1 MG TABLET PO PRN (21:45)
[2018-07-10] MEDS ORDERED: MAGNESIUM HYDROXIDE SUSPENSION 30 ML UDCUP PO PRN (21:45)
[2018-07-10] MEDS ORDERED: DOCUSATE SODIUM 100 MG CAPSULE PO PRN (21:45)
[2018-07-10] MEDS ORDERED: MAG HYDROX/AL HYDROX/SIMETH ES 30 ML SUSPENSION UDCUP PO PRN (21:45)
[2018-07-10] MEDS ORDERED: PETROLATUM,WHITE 71 GM JELLY TP PRN (21:45)
[2018-07-10] MEDS ORDERED: IBUPROFEN 400 MG TABLET PO PRN (21:45)
[2018-07-10] MEDS ORDERED: GuaiFENesin/D-METHORPHAN [SUGAR-FREE] 200-20MG/10 ML SYRUP UDCUP PO PRN (21:45)
[2018-07-10] MEDS ORDERED: ACETAMINOPHEN 325 MG TABLET PO PRN (21:45)
[2018-07-10] MEDS ORDERED: PNEUMOCOCCAL VACCINE POLYVALENT 0.5 ML VIAL [PPSV23] IM ONE (23:45)
[2018-07-11 01:29] VITALS: BP 122/61
[2018-07-11 08:23] VITALS: BP 115/60
[2018-07-11 08:41] LABS: BASOPHILS % (AUTO) 0.6 % (0.0-2.0); EOSINOPHILS % (AUTO) 1.5 % (1.0-6.0); HEMATOCRIT 44.1 % (41-53); HEMOGLOBIN 15.6 g/dL (13.5-17.5); LYMPHOCYTES # (AUTO) 1.4 K/uL (1.0-4.8); LYMPHOCYTES % (AUTO) 21.9 % (22.0-44.0); MEAN CORPUSCULAR HEMOGLOBIN 33.4 pg (26.0-34.0); MEAN CORPUSCULAR HGB CONC 35.5 G/dL (31.0-37.0); MEAN CORPUSCULAR VOLUME 94 fL (80-100); MONOCYTES # (AUTO) 0.4 K/uL (0.1-1.0); NEUTROPHILS # (AUTO) 4.4 K/uL (1.8-7.7); PLATELET COUNT (AUTO) 210 K/uL (150-450); RED BLOOD CELL COUNT(AUTO) 4.69 MIL/uL (4.50-5.90); RED CELL DISTRIBUTION WIDTH 12.5 % (11.5-14.5)
[2018-07-11] MEDS: CloNIDine HCL 0.1 MG TABLET PO SCH ×2 (08:43→16:11)
[2018-07-11] MEDS: ASPIRIN 81 MG CHEWABLE TABLET PO SCH (08:43)
[2018-07-11] MEDS: NICOTINE 21 MG/24 HOUR PATCH TD SCH (08:44)
[2018-07-11 09:15] LABS: ALANINE AMINOTRANSFERASE 15 U/L (12-78); ALBUMIN 3.5 g/dL (3.4-5.0); ALKALINE PHOSPHATASE 60 U/L (46-116); ANION GAP 9 mmol/L (8-16); ASPARTATE AMINOTRANSFERASE 18 U/L (15-37); BILIRUBIN,TOTAL 1.1 mg/dL (0.1-1.0); CALCIUM, TOTAL 8.7 mg/dL (8.8-10.5); CARBON DIOXIDE 27 mmol/L (22-29); CHLORIDE 105 mmol/L (98-107); CHOL/HDL RATIO 4.6 (4.2-7.3); CHOLESTEROL 173 mg/dL (131-200); CREATININE 0.88 mg/dL (0.60-1.30); GLOMERULAR FILTR. RATE CALC > 60 mL/min (>60); GLUCOSE,RANDOM 139 mg/dL (70-110); HDL CHOLESTEROL 38 mg/dL (40-60); LDL CHOL (CALC.) 114 mg/dL (0-130); POTASSIUM 3.6 mmol/L (3.5-5.1); SODIUM SERUM 141 mmol/L (136-145); TOTAL PROTEIN, SERUM 6.9 g/dL (6.4-8.2); TRIGLYCERIDES 105 mg/dL (15-150); UREA NITROGEN, BLOOD 10 mg/dL (7-18)
[2018-07-11 16:07] VITALS: BP 127/74
[2018-07-11] MEDS: BusPIRone HCL 5 MG TABLET PO SCH (16:11)
[2018-07-11] MEDS: QUEtiapine FUMARATE 200 MG TABLET PO SCH (20:10)
[2018-07-12 01:56] VITALS: BP 125/80
[2018-07-12 08:14] VITALS: BP 138/77
[2018-07-12] MEDS: ASPIRIN 81 MG CHEWABLE TABLET PO SCH (08:29)
[2018-07-12] MEDS: BusPIRone HCL 5 MG TABLET PO SCH ×3 (08:29→16:22)
[2018-07-12] MEDS: PARoxetine HCL 20 MG TABLET PO SCH (08:29)
[2018-07-12] MEDS: CloNIDine HCL 0.1 MG TABLET PO SCH ×2 (08:30→16:22)
[2018-07-12] MEDS: NICOTINE 21 MG/24 HOUR PATCH TD SCH (08:30)
[2018-07-12 16:06] VITALS: BP 138/74
[2018-07-12] MEDS: QUEtiapine FUMARATE 200 MG TABLET PO SCH (20:12)
[2018-07-13 04:13] VITALS: BP 129/83
[2018-07-13 08:10] VITALS: BP 115/63
[2018-07-13] MEDS: NICOTINE 21 MG/24 HOUR PATCH TD SCH (08:22)
[2018-07-13] MEDS: CloNIDine HCL 0.1 MG TABLET PO SCH (08:22)
[2018-07-13] MEDS: PARoxetine HCL 20 MG TABLET PO SCH (08:22)
[2018-07-13] MEDS: ASPIRIN 81 MG CHEWABLE TABLET PO SCH (08:22)
[2018-07-13] MEDS: BusPIRone HCL 5 MG TABLET PO SCH ×2 (08:22→12:23)
[2018-07-13] MEDS ORDERED: QUET200T PO (11:10)
[2018-07-13] MEDS ORDERED: BUSP5TAB20 PO (11:24)
[2018-07-13] MEDS ORDERED: QUET200T29 PO (11:24)
[2018-07-13] MEDS ORDERED: PARO-37 PO (11:24)
[2018-07-13 16:00] VITALS: BP 112/65
== END 2018-07-13 16:00 | disposition home or self-care (01) | DRG 885 ==
LOC: EMS 09:26 → B2X 15:41 → EMS 16:31
DX: F25.1 Schizoaffective disorder, depressive type (principal); E78.00 Pure hypercholesterolemia, unspecified; E78.5 Hyperlipidemia, unspecified; F12.10 Cannabis abuse, uncomplicated; F17.210 Nicotine dependence, cigarettes, uncomplicated; G40.909 Epilepsy, unspecified, not intractable, without status epilepticus; G80.9 Cerebral palsy, unspecified; F19.10 Other psychoactive substance abuse, uncomplicated; I10 Essential (primary) hypertension; J44.9 Chronic obstructive pulmonary disease, unspecified; K21.9 Gastro-esophageal reflux disease without esophagitis; R45.850 Homicidal ideations; Z79.899 Other long term (current) drug therapy; Z91.011 Allergy to milk products; Z79.82 Long term (current) use of aspirin; Z71.51 Drug abuse counseling and surveillance of drug abuser; Z88.8 Allergy status to other drugs, medicaments and biological substances; Z59.0 Homelessness; Z28.21 Immunization not carried out because of patient refusal; Z71.6 Tobacco abuse counseling
CPT/HCPCS: 83036; 84443; 99285; 99406; G0480

== ENCOUNTER 2019-05-24 22:42 | Emergency (ER) | payer MEDICARE, MEDICAID ==
[~2019-05-24 22:42] MED LIST changes: -GEMF600T PO; +QUET200T PO
== END 2019-05-24 22:50 | disposition left against medical advice (07) ==
LOC: EMS 22:44
DX: Z53.21 Procedure and treatment not carried out due to patient leaving prior to being seen by health care provider (principal)

== ENCOUNTER 2024-05-14 14:59 | Emergency (ER) | payer MEDICARE, OTHER ==
[~2024-05-14] VITALS: Ht 177.8 cm; Wt 81.8 kg
[~2024-05-14 14:59] MED LIST changes: -CLON.2 PO; +CLON0.2T2 PO; -QUET200T29 PO; +QUET200T30 PO
[2024-05-14 15:35] VITALS: BP 139/99; PULSE 88; RESP 18; TEMP 98
[2024-05-14 16:11] LABS: BASOPHILS % (AUTO) 0.4 % (0.0-2.0); EOSINOPHILS % (AUTO) 0.8 % (1.0-6.0); HEMATOCRIT 44.8 % (41-53); HEMOGLOBIN 15.6 g/dL (13.5-17.5); LYMPHOCYTES # (AUTO) 1.5 K/uL (1.0-4.8); LYMPHOCYTES % (AUTO) 19.2 % (22.0-44.0); MEAN CORPUSCULAR HEMOGLOBIN 34.6 pg (26.0-34.0); MEAN CORPUSCULAR HGB CONC 34.8 G/dL (31.0-37.0); MEAN CORPUSCULAR VOLUME 100 fL (80-100); MONOCYTES # (AUTO) 0.6 K/uL (0.1-1.0); MONOCYTES % (AUTO) 7.5 % (2.0-9.0); NEUTROPHILS # (AUTO) 5.6 K/uL (1.8-7.7); NEUTROPHILS % (AUTO) 72.1 % (40.0-70.0); PLATELET COUNT (AUTO) 242 K/uL (150-450); RED CELL DISTRIBUTION WIDTH 13.1 % (11.5-14.5); WHITE BLOOD COUNT (AUTO) 7.8 K/uL (4.5-11.0)
[2024-05-14 16:24] LABS: ANION GAP 13 mmol/L (8-16); CALCIUM, TOTAL 9.2 mg/dL (8.8-10.5); CARBON DIOXIDE 23 mmol/L (22-29); CHLORIDE 102 mmol/L (98-107); CREATININE 0.88 mg/dL (0.60-1.30); GLOMERULAR FILTR. RATE CALC > 60 mL/min (>60); GLUCOSE,RANDOM 96 mg/dL (70-110); LIPASE 32 U/L (16-77); POTASSIUM 3.6 mmol/L (3.5-5.1); SODIUM SERUM 138 mmol/L (136-145); UREA NITROGEN, BLOOD 7 mg/dL (7-18)
[2024-05-14] MEDS: PB/HYOSCY/ATR/SCOP/LIDO/MAALOX 55 ML BOTTLE PO ONE (17:09)
== END 2024-05-14 18:00 | disposition home or self-care (01) ==
LOC: EMS 14:59
DX: R10.9 Unspecified abdominal pain (principal); I10 Essential (primary) hypertension; F17.210 Nicotine dependence, cigarettes, uncomplicated; F12.90 Cannabis use, unspecified, uncomplicated; Z88.8 Allergy status to other drugs, medicaments and biological substances; Z91.011 Allergy to milk products
CPT/HCPCS: 80048; 83690; 85025; 93005; 99284

== ENCOUNTER 2024-11-05 14:13 | Inpatient (IN) | payer MEDICARE, OTHER ==
[~2024-11-05] VITALS: Ht 177.8 cm; Wt 72.0 kg
[~2024-11-05 14:13] MED LIST changes: -QUET200T PO
[2024-11-05 15:25] LABS: HEMATOCRIT 40.5 % (41-53); HEMOGLOBIN 13.9 g/dL (13.5-17.5); MEAN CORPUSCULAR HEMOGLOBIN 34.7 pg (26.0-34.0); MEAN CORPUSCULAR HGB CONC 34.3 G/dL (31.0-37.0); MEAN CORPUSCULAR VOLUME 101 fL (80-100); PLATELET COUNT (AUTO) 134 K/uL (150-450); RED CELL DISTRIBUTION WIDTH 12.9 % (11.5-14.5); WHITE BLOOD COUNT (AUTO) 12.2 K/uL (4.5-11.0)
[2024-11-05 15:28] LABS: APPEARANCE,URINE TURBID (CLEAR); BILIRUBIN,URINE NEGATIVE (NEGATIVE); GLUCOSE, URINE (UA) NEGATIVE (NEGATIVE); KETONES,URINE TRACE mg/dL (NEGATIVE); LEUKOCYTE ESTERASE ,URINE LARGE (NEGATIVE); NITRATE,URINE NEGATIVE (NEGATIVE); OCCULT BLOOD,URINE LARGE (NEGATIVE); PROTEIN,URINE 100-200,SEE CONFIRM mg/dL (NEGATIVE); SPECIFIC GRAVITIY, URINE 1.018 (1.003-1.030)
[2024-11-05 15:34] LABS: COLOR,URINE DARK YELLOW (YELLOW)
[2024-11-05 15:36] LABS: ALCOHOL, URINE DRUG SCREEN NEGATIVE (NEGATIVE); AMPHET/METH SCREEN,URINE NEGATIVE (NEGATIVE); BARBITURATE SCREEN, URINE NEGATIVE (NEGATIVE); BENZODIAZEPINES SCREEN,URINE NEGATIVE (NEGATIVE); CANNABINOID SCREEN,URINE NEGATIVE (NEGATIVE); COCAINE SCREEN,URINE NEGATIVE (NEGATIVE); METHADONE SCREEN, URINE NEGATIVE (NEGATIVE); OPIATE SCREEN,URINE NEGATIVE (NEGATIVE); PHENCYCLIDINE SCREEN,URINE NEGATIVE (NEGATIVE)
[2024-11-05 15:44] LABS: BAND NEUTROPHILS % (MANUAL) 5 % (0-5); LYMPHOCYTES % (MANUAL) 3 % (22-44); MONOCYTES % (MANUAL) 4 % (2-9); SEGMENTED NEUTROPHILS % 88 % (40-70); TOTAL CELLS COUNTED 100
[2024-11-05 15:45] LABS: PROTHROMBIN TIME 12.7 SEC (9.4-11.6); RBC MORPHOLOGY COMMENT NORMAL RBC MORPH
[2024-11-05 15:48] LABS: BACTERIA,URINE Many /HPF (None Seen); WBC,URINE 51-100 /HPF (0-5)
[2024-11-05 15:54] LABS: LACTIC ACID 3.9 mmol/L (0.4-2.0); TROPONIN I-HIGH SENSITIVITY 358 ng/L (<76)
[2024-11-05 15:56] LABS: ALANINE AMINOTRANSFERASE 43 U/L (12-78); ALBUMIN 2.7 g/dL (3.4-5.0); ALKALINE PHOSPHATASE 64 U/L (46-116); ANION GAP 16 mmol/L (8-16); ASPARTATE AMINOTRANSFERASE 172 U/L (15-37); BILIRUBIN,TOTAL 1.1 mg/dL (0.1-1.0); CALCIUM, TOTAL 8.3 mg/dL (8.8-10.5); CARBON DIOXIDE 22 mmol/L (22-29); CHLORIDE 97 mmol/L (98-107); CREATININE 1.74 mg/dL (0.60-1.30); GLOMERULAR FILTR. RATE CALC 40 mL/min (>60); GLUCOSE,RANDOM 68 mg/dL (70-110); SODIUM SERUM 135 mmol/L (136-145); TOTAL PROTEIN, SERUM 6.1 g/dL (6.4-8.2); UREA NITROGEN, BLOOD 30 mg/dL (7-18)
[2024-11-05 15:59] LABS: CREATINE KINASE, TOTAL ONLY 7535 U/L (39-308); POTASSIUM 2.8 mmol/L (3.5-5.1)
[2024-11-05 16:00] LABS: AMMONIA 9 umol/L (11-32)
[2024-11-05 16:07] LABS: SQUAMOUS EPITHELIAL CELL,UR Few /LPF (None Seen)
[2024-11-05 16:13] LABS: SULFOSALICYLIC ACID,URINE Trace (Negative)
[2024-11-05] MEDS: CefTRIAXone SODIUM 2 GM in DEXTROSE 5%-WATER 50 ML IV ONE (16:15)
[2024-11-05] MEDS: SODIUM CHLORIDE 0.9% 2,150 ML IV ONE (16:15)
[2024-11-05] MEDS ORDERED: BREX1TAB PO (16:21)
[2024-11-05] MEDS ORDERED: AMLO10TA55 PO (16:21)
[2024-11-05] MEDS ORDERED: FLUT1BLS3 IH (16:21)
[2024-11-05] MEDS ORDERED: MAGNESIUM HYDROXIDE SUSPENSION 30 ML UDCUP PO PRN (16:30)
[2024-11-05] MEDS ORDERED: ACETAMINOPHEN 325 MG TABLET PO PRN (16:30)
[2024-11-05] MEDS: SODIUM CHLORIDE 0.9% 1,000 ML IV ONE (16:30)
[2024-11-05] MEDS ORDERED: POTASSIUM CHL 10 MEQ/WATER 50 ML IV PRN (16:30)
[2024-11-05] MEDS ORDERED: OxyCODONE HCL/ACETAMINOPHEN 5-325 MG TABLET PO PRN (16:30)
[2024-11-05] MEDS: POTASSIUM CHLORIDE 20 MEQ ER TABLET PO ONE (16:35)
[2024-11-05] MEDS: POTASSIUM CHL 10 MEQ/WATER 50 ML IV SCH ×2 (16:36→23:39)
[2024-11-05 17:30] LABS: GLUCOMETER DEV NAME(LOC) ER.7; GLUCOSE,POINT OF CARE 76 MG/DL (70-110)
[2024-11-05] MEDS: LORazepam 2 MG/ML VIAL IVP ONE ×2 (18:21→23:40)
[2024-11-05] MEDS ORDERED: NOREPINEPHRINE 8 MG/0.9 % NACL 250 ML IV PRN (20:30)
[2024-11-05] MEDS: NOREPINEPHRINE 8 MG/0.9 % NACL 250 ML IV PRN (20:40)
[2024-11-05] MEDS: SODIUM CHLORIDE 0.9% 200 ML IV ONE (20:41)
[2024-11-05] MEDS ORDERED: DEXTROSE 50%-WATER 25 GM/50 ML SYRINGE IVP PRN (20:45)
[2024-11-05] MEDS: *CLINICAL-MEROPENEM DOSING CLINICAL ONE (20:46)
[2024-11-05] MEDS: HALOPERIDOL LACTATE 5 MG/ML VIAL IM ONE (20:59)
[2024-11-05] MEDS: DOCUSATE SODIUM 100 MG CAPSULE PO SCH (21:00)
[2024-11-05 21:01] LABS: CALCIUM, TOTAL 7.5 mg/dL (8.8-10.5); CREATININE 1.73 mg/dL (0.60-1.30)
[2024-11-05 21:02] LABS: ABG BASE EXCESS -8.8 mmol/L (-2.0-3.0); ABG CARBOXYHEMOGLOBIN 1.2 % (0.5-1.5); ABG HCO3 18.8 mmol/L (21.0-28.0); ABG METHEMOGLOBIN 0.9 % (0.0-1.5); ABG OXYGEN CONTENT 17.8 mL/dL (15.0-23.0); ABG OXYGEN SATURATION 98.7 % (94.0-98.0); ABG OXYHEMOGLOBIN 96.6 % (94.0-98.0); ABG PCO2 26 mmHg (32.0-48.0); ALLEN TEST, BLOOD GAS Positive; PO2, ARTERIAL BG 111.2 mmHg (83.0-108.0); SITE, BLOOD GAS RT RADIAL; SOURCE, BLOOD GAS ARTERIAL; TEMPERATURE, FAHRENHEIT, BG 98.6 FAHREN (96.0-98.6)
[2024-11-05 21:03] LABS: O2 DEVICE,BLOOD GAS CANNULA (ROOM AIR)
[2024-11-05 21:07] LABS: POTASSIUM 2.9 mmol/L (3.5-5.1)
[2024-11-05 21:19] LABS: EOSINOPHILS % (AUTO) 0.1 % (1.0-6.0); HEMATOCRIT 38.3 % (41-53); HEMOGLOBIN 12.5 g/dL (13.5-17.5); LYMPHOCYTES # (AUTO) 0.4 K/uL (1.0-4.8); MEAN CORPUSCULAR HGB CONC 32.5 G/dL (31.0-37.0); MEAN CORPUSCULAR VOLUME 105 fL (80-100); MONOCYTES # (AUTO) 1.4 K/uL (0.1-1.0); MONOCYTES % (AUTO) 6.8 % (2.0-9.0); NEUTROPHILS # (AUTO) 18.4 K/uL (1.8-7.7); RED BLOOD CELL COUNT(AUTO) 3.66 MIL/uL (4.50-5.90); WHITE BLOOD COUNT (AUTO) 20.2 K/uL (4.5-11.0)
[2024-11-05 21:37] LABS: NEUTROPHILS % (AUTO) 91.1 % (40.0-70.0)
[2024-11-05 21:46] LABS: PLATELET COUNT (AUTO) 86 K/uL (150-450)
[2024-11-05] MEDS: CLINDAMYCIN 600 MG/D5% WATER 50 ML IV ONE (21:46)
[2024-11-05 22:04] LABS: TROPONIN I-HIGH SENSITIVITY 370 ng/L (<76)
[2024-11-05] MEDS: VANCOMYCIN 1.5 GM/WATER(PEG) 300 ML IV ONE (23:39)
[2024-11-05] MEDS: HEPARIN SODIUM,PORCINE 5,000 UNITS/ML VIAL SQ SCH (23:40)
[2024-11-05] MEDS: DEXTROSE 5%-LACTATED RINGERS 1,000 ML IV ONE (23:41)
[2024-11-05] MEDS: DiphenhydrAMINE HCL 50 MG/ML VIAL IVP ONE (23:41)
[2024-11-06 00:08] LABS: TROPONIN I-HIGH SENSITIVITY 313 ng/L (<76)
[2024-11-06] MEDS: HALOPERIDOL LACTATE 5 MG/ML VIAL IM ONE (00:16)
[2024-11-06] MEDS: MEROPENEM 1 GM in SODIUM CHLORIDE 0.9% 100 ML IV SCH ×2 (01:05→11:04)
[2024-11-06] MEDS: DEXTROSE 5%-LACTATED RINGERS 1,000 ML IV SCH (01:06)
[2024-11-06 05:12] LABS: CALCIUM, TOTAL 7.7 mg/dL (8.8-10.5); CREATININE 1.5 mg/dL (0.60-1.30); POTASSIUM 3.6 mmol/L (3.5-5.1)
[2024-11-06] MEDS: LORazepam 2 MG/ML VIAL IVP ONE (07:08)
[2024-11-06] MEDS: FAMOTIDINE 20 MG TABLET PO SCH (07:58)
[2024-11-06] MEDS: VANCOMYCIN 1.25 GM/WATER(PEG) 250 ML IV SCH (07:59)
[2024-11-06] MEDS: HALOPERIDOL LACTATE 5 MG/ML VIAL IVP ONE (08:53)
[2024-11-06 09:28] LABS: ABG CARBOXYHEMOGLOBIN 0.7 % (0.5-1.5); ABG HCO3 20.4 mmol/L (21.0-28.0); ABG METHEMOGLOBIN 1.1 % (0.0-1.5); ABG OXYGEN CONTENT 18.9 mL/dL (15.0-23.0); ABG OXYGEN SATURATION 99.7 % (94.0-98.0); ABG OXYHEMOGLOBIN 97.9 % (94.0-98.0); ABG PCO2 32 mmHg (32.0-48.0); ABG TOTAL HEMOGLOBIN 13.4 G/dL (13.5-17.5); PO2, ARTERIAL BG 216.8 mmHg (83.0-108.0); SOURCE, BLOOD GAS ARTERIAL
[2024-11-06 09:31] LABS: SITE, BLOOD GAS RT RADIAL
[2024-11-06 09:32] LABS: ALLEN TEST, BLOOD GAS Positive; O2 DEVICE,BLOOD GAS NON REBREATHER (ROOM AIR)
[2024-11-06 12:00] VITALS: BP 114/87; PULSE 98; RESP 26; TEMP 98.6; O2SAT 96
[2024-11-06 16:00] VITALS: BP 118/68; PULSE 83; RESP 28; TEMP 98.8; O2SAT 97
[2024-11-06] MEDS ORDERED: CefTRIAXone 1 GM/DEXTROSE 50 ML IV SCH (16:00)
[2024-11-06] MEDS ORDERED: ONDANSETRON HCL 4 MG/2 ML VIAL IVP PRN (18:00)
[2024-11-06] MEDS ORDERED: MORPHINE SULFATE 2 MG/ML SYRINGE IVP PRN (18:00)
[2024-11-06] MEDS ORDERED: ACETAMINOPHEN 325 MG TABLET PO PRN (18:00)
[2024-11-06] MEDS ORDERED: MAGNESIUM HYDROXIDE SUSPENSION 30 ML UDCUP PO PRN (18:00)
[2024-11-06] MEDS ORDERED: BISACODYL 10 MG RECTAL RECTAL SUPPOSITORY PR PRN (18:00)
[2024-11-06] MEDS ORDERED: POTASSIUM CHL 10 MEQ/WATER 50 ML IV PRN (18:30)
[2024-11-06] MEDS ORDERED: POTASSIUM CHLORIDE 20 MEQ ER TABLET PO PRN (18:30)
[2024-11-06] MEDS: ALBUTEROL SULFATE 2.5 MG/0.5 ML NEB SOLUTION NEB PRN (18:54)
[2024-11-06] MEDS: IPRATROPIUM BROMIDE 0.5 MG/2.5 ML NEB SOLUTION NEB PRN (18:54)
[2024-11-06 18:55] VITALS: PULSE 110; RESP 40; O2SAT 96
[2024-11-06] MEDS: MethylPREDNISolone SOD SUCC 125 MG/2 ML VIAL IVP SCH (18:56)
[2024-11-06 19:10] VITALS: PULSE 101; RESP 36; O2SAT 97
[2024-11-06 22:30] VITALS: BP 112/83; PULSE 71; RESP 27; TEMP 98.7; O2SAT 97
[2024-11-07] VITALS (11 sets, daily range): BP systolic 12–155; BP diastolic 77–96; PULSE 69–98; RESP 19–32; TEMP 97.5–98.7; O2SAT 92–100
[2024-11-07] MEDS: HEPARIN SODIUM,PORCINE 5,000 UNITS/ML VIAL SQ SCH (01:06)
[2024-11-07 05:59] LABS: ANION GAP 10 mmol/L (8-16); CARBON DIOXIDE 24 mmol/L (22-29); CHLORIDE 107 mmol/L (98-107); CREATININE 0.97 mg/dL (0.60-1.30); GLOMERULAR FILTR. RATE CALC > 60 mL/min (>60); GLUCOSE,RANDOM 121 mg/dL (70-110); POTASSIUM 3.4 mmol/L (3.5-5.1); SODIUM SERUM 141 mmol/L (136-145); UREA NITROGEN, BLOOD 22 mg/dL (7-18)
[2024-11-07 06:17] LABS: TROPONIN I-HIGH SENSITIVITY 210 ng/L (<76)
[2024-11-07] MEDS: PANTOPRAZOLE SODIUM 40 MG/VIAL IVP SCH (08:43)
[2024-11-07] MEDS: DOCUSATE SODIUM 100 MG/10 ML LIQUID UDCUP PO SCH (08:45)
[2024-11-07 09:19] LABS: BASOPHILS % (AUTO) 0.2 % (0.0-2.0); EOSINOPHILS % (AUTO) 0.3 % (1.0-6.0); HEMATOCRIT 38.6 % (41-53); HEMOGLOBIN 13.4 g/dL (13.5-17.5); LYMPHOCYTES # (AUTO) 0.3 K/uL (1.0-4.8); LYMPHOCYTES % (AUTO) 1.6 % (22.0-44.0); MEAN CORPUSCULAR HGB CONC 34.7 G/dL (31.0-37.0); MEAN CORPUSCULAR VOLUME 101 fL (80-100); MONOCYTES # (AUTO) 0.4 K/uL (0.1-1.0); MONOCYTES % (AUTO) 2.1 % (2.0-9.0); NEUTROPHILS # (AUTO) 19.8 K/uL (1.8-7.7); PLATELET COUNT (AUTO) 80 K/uL (150-450); RED BLOOD CELL COUNT(AUTO) 3.82 MIL/uL (4.50-5.90); WHITE BLOOD COUNT (AUTO) 20.6 K/uL (4.5-11.0)
[2024-11-07 09:22] LABS: NEUTROPHILS % (AUTO) 95.8 % (40.0-70.0)
[2024-11-07 09:41] LABS: INFLUENZA A-RTPCR,COMBO NEGATIVE (NEGATIVE); INFLUENZA B-RTPCR,COMBO NEGATIVE (NEGATIVE); RESPIRATORY SYNCYTIAL VRS-PCR NEGATIVE (NEGATIVE); SARS COVID19 RTPCR, COMBO NEGATIVE (NEGATIVE)
[2024-11-07] MEDS: POTASSIUM CHLORIDE 20 MEQ ER TABLET PO PRN (09:52)
[2024-11-07] MEDS: VANCOMYCIN 1GM/WATER(PEG/NADA) 200 ML IV SCH (20:14)
[2024-11-07] MEDS ORDERED: SODIUM CHLORIDE 0.9% 500 ML IV ONE (20:22)
[2024-11-08] VITALS (12 sets, daily range): BP systolic 113–151; BP diastolic 71–90; PULSE 72–86; RESP 18–24; TEMP 97.5–98.7; O2SAT 92–98
[2024-11-08 07:48] LABS: ANION GAP 9 mmol/L (8-16); CALCIUM, TOTAL 8.3 mg/dL (8.8-10.5); CARBON DIOXIDE 25 mmol/L (22-29); CHLORIDE 107 mmol/L (98-107); CREATININE 0.96 mg/dL (0.60-1.30); GLOMERULAR FILTR. RATE CALC > 60 mL/min (>60); GLUCOSE,RANDOM 127 mg/dL (70-110); POTASSIUM 3.6 mmol/L (3.5-5.1); SODIUM SERUM 141 mmol/L (136-145); THYROID STIMULATING HORMONE 1.02 uIU/mL (0.36-3.74); UREA NITROGEN, BLOOD 24 mg/dL (7-18)
[2024-11-08 08:13] LABS: BASOPHILS % (AUTO) 0.2 % (0.0-2.0); EOSINOPHILS % (AUTO) 0 % (1.0-6.0); HEMATOCRIT 36.3 % (41-53); HEMOGLOBIN 12.5 g/dL (13.5-17.5); LYMPHOCYTES # (AUTO) 0.5 K/uL (1.0-4.8); LYMPHOCYTES % (AUTO) 3.1 % (22.0-44.0); MEAN CORPUSCULAR HEMOGLOBIN 34.8 pg (26.0-34.0); MEAN CORPUSCULAR HGB CONC 34.6 G/dL (31.0-37.0); MEAN CORPUSCULAR VOLUME 101 fL (80-100); MONOCYTES # (AUTO) 0.3 K/uL (0.1-1.0); MONOCYTES % (AUTO) 1.9 % (2.0-9.0); NEUTROPHILS # (AUTO) 16.1 K/uL (1.8-7.7); PLATELET COUNT (AUTO) 64 K/uL (150-450); RED BLOOD CELL COUNT(AUTO) 3.61 MIL/uL (4.50-5.90); RED CELL DISTRIBUTION WIDTH 12.7 % (11.5-14.5)
[2024-11-08 08:14] LABS: NEUTROPHILS % (AUTO) 94.8 % (40.0-70.0)
[2024-11-08 08:15] LABS: RBC MORPHOLOGY COMMENT ABNORMAL RBC MORPH
[2024-11-08] MEDS: ALBUTEROL SULFATE 2.5 MG/0.5 ML NEB SOLUTION NEB SCH (19:14)
[2024-11-08] MEDS: IPRATROPIUM BROMIDE 0.5 MG/2.5 ML NEB SOLUTION NEB SCH (19:15)
[2024-11-09] VITALS (15 sets, daily range): BP systolic 130–145; BP diastolic 78–100; PULSE 69–102; RESP 20–26; TEMP 97.7–98.2; O2SAT 91–99
[2024-11-09 07:55] LABS: ANION GAP 9 mmol/L (8-16); CALCIUM, TOTAL 8.2 mg/dL (8.8-10.5); CARBON DIOXIDE 27 mmol/L (22-29); CHLORIDE 107 mmol/L (98-107); CREATININE 1.03 mg/dL (0.60-1.30); GLOMERULAR FILTR. RATE CALC > 60 mL/min (>60); GLUCOSE,RANDOM 128 mg/dL (70-110); SODIUM SERUM 143 mmol/L (136-145); UREA NITROGEN, BLOOD 23 mg/dL (7-18)
[2024-11-09 08:03] LABS: POTASSIUM 2.9 mmol/L (3.5-5.1)
[2024-11-09] MEDS ORDERED: SODIUM CHLORIDE 0.9% 500 ML IV ONE (11:23)
[2024-11-09] MEDS: MethylPREDNISolone SOD SUCC 125 MG/2 ML VIAL IVP SCH (17:29)
[2024-11-09] MEDS: VANCOMYCIN HCL 1 GM/D5% WATER 200 ML IV SCH (20:46)
[2024-11-10] VITALS (8 sets, daily range): BP systolic 113–165; BP diastolic 73–99; PULSE 59–88; RESP 18–22; TEMP 97.3–98; O2SAT 9–96
[2024-11-10 07:26] LABS: ANION GAP 7 mmol/L (8-16); CALCIUM, TOTAL 8.5 mg/dL (8.8-10.5); CARBON DIOXIDE 27 mmol/L (22-29); CHLORIDE 107 mmol/L (98-107); CREATININE 0.81 mg/dL (0.60-1.30); GLOMERULAR FILTR. RATE CALC > 60 mL/min (>60); GLUCOSE,RANDOM 80 mg/dL (70-110); POTASSIUM 3.5 mmol/L (3.5-5.1); SODIUM SERUM 141 mmol/L (136-145); UREA NITROGEN, BLOOD 21 mg/dL (7-18)
[2024-11-10 11:43] LABS: BASOPHILS % (AUTO) 0.2 % (0.0-2.0); EOSINOPHILS % (AUTO) 0 % (1.0-6.0); HEMATOCRIT 40.7 % (41-53); HEMOGLOBIN 14.1 g/dL (13.5-17.5); LYMPHOCYTES # (AUTO) 0.9 K/uL (1.0-4.8); LYMPHOCYTES % (AUTO) 11.6 % (22.0-44.0); MEAN CORPUSCULAR HEMOGLOBIN 35.1 pg (26.0-34.0); MEAN CORPUSCULAR HGB CONC 34.6 G/dL (31.0-37.0); MEAN CORPUSCULAR VOLUME 101 fL (80-100); MONOCYTES # (AUTO) 1.2 K/uL (0.1-1.0); NEUTROPHILS # (AUTO) 5.6 K/uL (1.8-7.7); NEUTROPHILS % (AUTO) 72.2 % (40.0-70.0); PLATELET COUNT (AUTO) 89 K/uL (150-450); RED BLOOD CELL COUNT(AUTO) 4.02 MIL/uL (4.50-5.90); RED CELL DISTRIBUTION WIDTH 12.9 % (11.5-14.5); WHITE BLOOD COUNT (AUTO) 7.8 K/uL (4.5-11.0)
[2024-11-10 12:00] LABS: ALANINE AMINOTRANSFERASE 101 U/L (12-78); ALBUMIN 2.5 g/dL (3.4-5.0); ALKALINE PHOSPHATASE 55 U/L (46-116); ASPARTATE AMINOTRANSFERASE 67 U/L (15-37); BILIRUBIN,TOTAL 1.2 mg/dL (0.1-1.0); TOTAL PROTEIN, SERUM 5.7 g/dL (6.4-8.2)
[2024-11-10] MEDS: AmLODIPine BESYLATE 10 MG TABLET PO SCH (13:28)
[2024-11-10] MEDS: MethylPREDNISolone SOD SUCC 125 MG/2 ML VIAL IVP SCH (17:15)
[2024-11-10] MEDS: CloNIDine HCL 0.2 MG TABLET PO SCH (17:15)
[2024-11-11] VITALS (8 sets, daily range): BP systolic 116–128; BP diastolic 73–83; PULSE 58–80; RESP 18–20; TEMP 97.4–97.7; O2SAT 90–100
[2024-11-11 08:02] LABS: ANION GAP 4 mmol/L (8-16); CALCIUM, TOTAL 8.4 mg/dL (8.8-10.5); CARBON DIOXIDE 31 mmol/L (22-29); CHLORIDE 102 mmol/L (98-107); CREATININE 0.65 mg/dL (0.60-1.30); GLOMERULAR FILTR. RATE CALC > 60 mL/min (>60); GLUCOSE,RANDOM 91 mg/dL (70-110); POTASSIUM 3.6 mmol/L (3.5-5.1); SODIUM SERUM 137 mmol/L (136-145); UREA NITROGEN, BLOOD 17 mg/dL (7-18)
[2024-11-11] MEDS ORDERED: MISC MED-CONVERTED FROM AMBULATORY (Fluticasone/Umeclidin/Vilanter (Trelegy Ellipta 100-62 IH SCH (09:00)
[2024-11-11] MEDS: BREXPIPRAZOLE 1 MG TABLET PO SCH (09:04)
[2024-11-11] MEDS: ASPIRIN 81 MG CHEWABLE TABLET PO SCH (09:06)
[2024-11-11] MEDS: PredniSONE 20 MG TABLET PO SCH (09:06)
[2024-11-11] MEDS: PredniSONE 20 MG TABLET PO ONE (15:55)
[2024-11-12 05:53] VITALS: BP 128/77; PULSE 60; RESP 18; TEMP 96.8; O2SAT 97
[2024-11-12 06:53] LABS: ANION GAP 3 mmol/L (8-16); CARBON DIOXIDE 33 mmol/L (22-29); CHLORIDE 101 mmol/L (98-107); CREATININE 0.71 mg/dL (0.60-1.30); GLOMERULAR FILTR. RATE CALC > 60 mL/min (>60); GLUCOSE,RANDOM 93 mg/dL (70-110); POTASSIUM 3.7 mmol/L (3.5-5.1); SODIUM SERUM 137 mmol/L (136-145); UREA NITROGEN, BLOOD 18 mg/dL (7-18); VANCOMYCIN,RANDOM 15.8 mcg/mL (25.0-50.0)
[2024-11-12] MEDS: PredniSONE 20 MG TABLET PO SCH (08:30)
[2024-11-12 09:21] VITALS: BP 131/69; PULSE 77; RESP 20; TEMP 97.6; O2SAT 97
[2024-11-12 11:37] VITALS: PULSE 63; RESP 18; O2SAT 97
[2024-11-12 11:50] VITALS: PULSE 65; RESP 18; O2SAT 99
[2024-11-12] MEDS ORDERED: DOCU-385 PO (12:44)
[2024-11-12] MEDS ORDERED: HEPA500018 SQ (12:45)
[2024-11-12] MEDS ORDERED: FAMO20 PO (12:45)
[2024-11-12] MEDS ORDERED: PRED-554 PO (12:50)
[2024-11-12] MEDS ORDERED: ALBU2.5V39 NEB (12:50)
[2024-11-12] MEDS ORDERED: IPRA0.2S49 NEB (12:51)
[2024-11-12] MEDS ORDERED: MAGN-169 PO (12:52)
== END 2024-11-12 16:20 | DRG 871 ==
LOC: EMS 14:18 → EDH 16:20 → ICU 11-06 10:15 → 5N 11-07 18:20 → 4E 11-11 12:13
PROVIDERS: ADMIT Internal Medicine; ATTEND Internal Medicine
DX: A41.9 Sepsis, unspecified organism (principal); E43 Unspecified severe protein-calorie malnutrition; G93.41 Metabolic encephalopathy; J18.9 Pneumonia, unspecified organism; R65.21 Severe sepsis with septic shock; M62.82 Rhabdomyolysis; N17.9 Acute kidney failure, unspecified; N39.0 Urinary tract infection, site not specified; E87.20 Acidosis, unspecified; J44.1 Chronic obstructive pulmonary disease with (acute) exacerbation; Z59.00 Homelessness unspecified; J44.0 Chronic obstructive pulmonary disease with (acute) lower respiratory infection; Z20.822 Contact with and (suspected) exposure to COVID-19; E78.5 Hyperlipidemia, unspecified; E87.6 Hypokalemia; F20.9 Schizophrenia, unspecified; G80.9 Cerebral palsy, unspecified; E11.649 Type 2 diabetes mellitus with hypoglycemia without coma; R79.89 Other specified abnormal findings of blood chemistry; N18.9 Chronic kidney disease, unspecified; E11.22 Type 2 diabetes mellitus with diabetic chronic kidney disease; R74.01 Elevation of levels of liver transaminase levels; I13.10 Hypertensive heart and chronic kidney disease without heart failure, with stage 1 through stage 4 chronic kidney disease, or unspecified chronic kidney disease; D69.6 Thrombocytopenia, unspecified; I49.3 Ventricular premature depolarization; Z87.891 Personal history of nicotine dependence; Z68.22 Body mass index [BMI] 22.0-22.9, adult; Z88.8 Allergy status to other drugs, medicaments and biological substances; Z91.011 Allergy to milk products
CPT/HCPCS: 0241U; 36600; 70450; 71045; 80048; 80076; 80202; 80307; 81001; 81002; 82140; 82248; 82550; 82805; 82962; 83605; 83735; 83880; 84132; 84443; 84484; 85025; 85610; 85730; 87040; 87081; 87086; 92610; 93005; 93306; 93880; 94640; 97116; 97163; 97166; 97530; 99291; G0378; J0696; J1200; J1630; J1644; J2060; J2185; J2470; J2919; J3370; J3480; J3490; J7030; J7040; J7050; J7060; 36415-L1; 36415-TC; J7613